=== PATIENT | male | born 1990 | race Caucasian/White ===

== ENCOUNTER 2017-02-04 09:05 | Inpatient (IN) | payer OTHER, SELFPAY ==
[~2017-02-04] VITALS: Ht 172.7 cm; Wt 90.5 kg
[2017-02-04] MEDS ORDERED: LORazepam 2 MG/ML, 1ML ONE (09:41)
[2017-02-04] MEDS ORDERED: PANTOPRAZOLE 40 MG IV ONE (09:41)
[2017-02-04] MEDS ORDERED: ONDANSETRON 2MG/ML, 2ML ONE (09:41)
[2017-02-04] MEDS ORDERED: FAMOTIDINE 20 MG/2 ML ONE (09:42)
[2017-02-04 09:58] LABS: HEMATOCRIT 50.6 % (39.2-51.8); HEMOGLOBIN 17.5 g/dL (13.7-18.0); WHITE BLOOD COUNT 5.3 x10^3/uL (3.4-10)
[2017-02-04] MEDS ORDERED: PANTOPRAZOLE 40 MG IV IVPush ONE (10:00)
[2017-02-04] MEDS ORDERED: LORazepam 2 MG/ML, 1ML IVPush PRN (10:00)
[2017-02-04] MEDS ORDERED: ONDANSETRON 2MG/ML, 2ML IVPush ONE (10:00)
[2017-02-04] MEDS ORDERED: MAGNESIUM SULFATE 1 GM, THIAMINE 100 MG, FOLIC ACID 1 MG, MVI ADULT 10 ML in SODIUM CHL... IV ONE (10:00)
[2017-02-04] MEDS ORDERED: SODIUM CHLORIDE FLUSH 10ML SYR IVF ONE (10:00)
[2017-02-04] MEDS ORDERED: FAMOTIDINE 20 MG/2 ML IVPush ONE (10:00)
[2017-02-04] MEDS ORDERED: SODIUM CHLORIDE 0.9% 1,000ML IVBOLUS ONE (10:00)
[2017-02-04 10:09] LABS: ASPARTATE AMINO TRANSFERASE 171 U/L (15-37); BLOOD UREA NITROGEN 11 mg/dL (7-18)
[2017-02-04] MEDS ORDERED: THIAMINE 100 MG in SODIUM CHLORIDE 0.9% 50 ML IV ONE (11:40)
[2017-02-04] MEDS ORDERED: POTASSIUM CHLORIDE 20 MEQ, MAGNESIUM SULFATE 2 GM, THIAMINE 100 MG, MVI ADULT 10 ML, FO... IV SCH (12:47)
[2017-02-04] MEDS ORDERED: morphine SULFATE 10 MG/ML, 1ML IVPush PRN (13:00)
[2017-02-04] MEDS ORDERED: ONDANSETRON 2MG/ML, 2ML IVPush PRN (13:00)
[2017-02-04] MEDS ORDERED: ONDANSETRON ODT 4 MG PO PRN (13:00)
[2017-02-04] MEDS ORDERED: hydrALAzine 20 MG/ML, 1ML IVPush PRN (13:00)
[2017-02-04] MEDS ORDERED: LABETALOL 5MG/ML, 20ML IVPush PRN (13:00)
[2017-02-04] MEDS ORDERED: CHLORDIAZEPOXIDE 10 MG CAPSULE PO PRN (13:00)
[2017-02-04] MEDS ORDERED: OXYcodone IR 5MG TABLET PO PRN (13:00)
[2017-02-04] MEDS ORDERED: TRAZODONE 50MG TABLET PO PRN (13:00)
[2017-02-04] MEDS ORDERED: LORazepam 2 MG/ML, 1ML IV PRN ×2 (13:00)
[2017-02-04] MEDS: NICOTINE 21 MG/24 HR PATCH.TD24 TD SCH (13:00)
[2017-02-04 13:48] VITALS: BP 131/83
[2017-02-04 13:50] VITALS: BP 131/83
[2017-02-04] MEDS: LORazepam 2 MG/ML, 1ML IV PRN (14:33)
[2017-02-04] MEDS: SUCRALFATE 1 GM TABLET PO SCH ×2 (15:44→20:38)
[2017-02-04 20:01] VITALS: BP 123/78
[2017-02-05 02:25] VITALS: BP 133/79
[2017-02-05 06:04] LABS: HEMATOCRIT 47.5 % (39.2-51.8); HEMOGLOBIN 16.6 g/dL (13.7-18.0); WHITE BLOOD COUNT 7.4 x10^3/uL (3.4-10)
[2017-02-05 06:15] LABS: BLOOD UREA NITROGEN 10 mg/dL (7-18)
[2017-02-05 06:19] LABS: ASPARTATE AMINO TRANSFERASE 125 U/L (15-37)
[2017-02-05] MEDS: SUCRALFATE 1 GM TABLET PO SCH ×4 (07:00→20:42)
[2017-02-05 07:32] VITALS: BP 129/85
[2017-02-05] MEDS: PANTOPRAZOLE 40 MG IV IVPush SCH (07:33)
[2017-02-05] MEDS: NICOTINE 21 MG/24 HR PATCH.TD24 TD SCH (13:00)
[2017-02-05 13:01] VITALS: BP 124/82
[2017-02-05] MEDS: LORazepam 2 MG/ML, 1ML IV PRN (16:18)
[2017-02-05 18:54] VITALS: BP 137/86
[2017-02-06 01:09] VITALS: BP 107/67
[2017-02-06 06:01] LABS: HEMATOCRIT 48.2 % (39.2-51.8); HEMOGLOBIN 16.7 g/dL (13.7-18.0); WHITE BLOOD COUNT 6.2 x10^3/uL (3.4-10)
[2017-02-06 06:13] LABS: BLOOD UREA NITROGEN 13 mg/dL (7-18)
[2017-02-06 06:45] VITALS: BP 116/65
[2017-02-06] MEDS: SUCRALFATE 1 GM TABLET PO SCH ×2 (07:00→11:00)
[2017-02-06] MEDS: PANTOPRAZOLE 40 MG IV IVPush SCH (07:48)
[2017-02-06] MEDS ORDERED: FOLIC ACID 1 MG TABLET PO SCH (09:00)
[2017-02-06] MEDS ORDERED: MULTIVITAMIN 1 TABLET PO SCH (09:00)
[2017-02-06] MEDS ORDERED: MULT1TAB60 PO (10:25)
[2017-02-06] MEDS ORDERED: SUCR1TAB33 PO (10:25)
[2017-02-06] MEDS ORDERED: FOLI-17 PO (10:25)
[2017-02-06] MEDS ORDERED: PANT40TA3 PO (10:25)
[2017-02-06] MEDS ORDERED: THIA100T10 PO (10:25)
== END 2017-02-06 12:15 | disposition home or self-care (01) | DRG 896 ==
LOC: ED 11:19 → EDIP 12:08 → 4WST 13:53
PROVIDERS: ADMIT Internal Medicine; ATTEND Internal Medicine
DX: F10.239 Alcohol dependence with withdrawal, unspecified (principal); K22.6 Gastro-esophageal laceration-hemorrhage syndrome; K70.10 Alcoholic hepatitis without ascites; F12.90 Cannabis use, unspecified, uncomplicated; F17.210 Nicotine dependence, cigarettes, uncomplicated; R74.8 Abnormal levels of other serum enzymes; Z87.19 Personal history of other diseases of the digestive system
CPT/HCPCS: 36415; 76700; 80048; 80053; 80076; 80307; 82140; 82977; 83690; 84439; 84443; 85025; 85610; 85730; 86704; 86706; 86708; 86803; 86850; 86900; 87340; 93005; 96361; 96365; 96366; 96375; J2405; J3411; J3475; J3480; J7042; C9113; G0479; J2060; J7030; S0028

== ENCOUNTER 2017-12-18 22:25 | Inpatient (IN) | payer MEDICAID, OTHER ==
[~2017-12-18] VITALS: Ht 172.7 cm; Wt 93.7 kg
[~2017-12-18 22:25] MED LIST: FOLI-17 PO; MULT1TAB60 PO; PANT40TA3 PO; SUCR1TAB33 PO; THIA100T10 PO
[2017-12-18] MEDS ORDERED: THIAMINE 100MG TABLET ONE (23:17)
[2017-12-18] MEDS ORDERED: ONDANSETRON ODT 4 MG ONE (23:17)
[2017-12-18] MEDS ORDERED: PANTOPRAZOLE 40 MG IV ONE (23:18)
[2017-12-18] MEDS ORDERED: LORazepam 2 MG/ML, 1ML ONE (23:18)
[2017-12-18 23:21] LABS: BASOPHILS # (AUTO) 0.03 x10^3/uL (0-0.1); BASOPHILS % (AUTO) 1 % (0-1); EOSINOPHILS # (AUTO) 0.03 x10^3/uL (0-0.4); EOSINOPHILS % (AUTO) 1 % (1-7); LYMPHOCYTES # (AUTO) 2.03 x10^3/uL (1-3.4); LYMPHOCYTES % (AUTO) 41 % (22-44); MD NO; MEAN CORPUSCULAR HEMOGLOBIN 33.9 pg (27.5-34.5); MEAN CORPUSCULAR HGB CONC 34.6 g/dL (33.2-36.2); MEAN CORPUSCULAR VOLUME 98.2 fL (81-97); MEAN PLATELET VOLUME 6.8 fL (7.4-10.4); MONOCYTES # (AUTO) 0.43 x10^3/uL (0.2-0.8); MONOCYTES % (AUTO) 9 % (2-9); NEUTROPHILS # (AUTO) 2.46 x10^3/uL (1.8-6.8); NEUTROPHILS % (AUTO) 49 % (42-75); PLATELET COUNT 337 x10^3/uL (130-400); RED BLOOD COUNT 5.31 x10^6/uL (4.38-5.82); RED CELL DISTRIBUTION WIDTH 13.3 % (9.4-14.8)
[2017-12-18] MEDS: LORazepam 2 MG/ML, 1ML IVPush PRN (23:26)
[2017-12-18 23:27] LABS: INTERNATIONAL NORMALIZED RATIO 0.98 (0.93-1.1); PROTHROMBIN TIME 10.2 Seconds (9.6-11.5)
[2017-12-18 23:30] LABS: ALANINE AMINOTRANSFERASE 162 U/L (12-78); ALBUMIN 4.6 g/dL (3.4-5.0); ANION GAP 14 mmol/L (5-15); CALCIUM 9.2 mg/dL (8.5-10.1); CHLORIDE 103 mmol/L (98-107); CREATININE 0.98 mg/dL (0.7-1.3)
[2017-12-18] MEDS ORDERED: THIAMINE 100MG TABLET PO ONE (23:30)
[2017-12-18] MEDS ORDERED: SODIUM CHLORIDE 0.9% 1,000ML IVBOLUS ONE (23:30)
[2017-12-18] MEDS ORDERED: ONDANSETRON ODT 4 MG PO ONE (23:30)
[2017-12-18] MEDS ORDERED: PANTOPRAZOLE 40 MG IV IVPush ONE (23:30)
[2017-12-18 23:32] LABS: ALKALINE PHOSPHATASE 88 U/L (45-117); BILIRUBIN,TOTAL 1.2 mg/dL (0.2-1.0); TOTAL PROTEIN 8.5 g/dL (6.4-8.2)
[2017-12-19] MEDS ORDERED: LORazepam 2 MG/ML, 1ML ONE ×3 (00:40→02:06)
[2017-12-19] MEDS ORDERED: ACETAMINOPHEN 325 MG TABLET ONE (00:40)
[2017-12-19] MEDS: LORazepam 2 MG/ML, 1ML IVPush PRN ×2 (00:48→01:43)
[2017-12-19] MEDS ORDERED: ACETAMINOPHEN 325 MG TABLET PO ONE (01:00)
[2017-12-19] MEDS ORDERED: LORazepam 2 MG/ML, 1ML IVPush ONE (02:00)
[2017-12-19] MEDS ORDERED: SODIUM CHLORIDE 0.9% 1,000ML IVBOLUS ONE (02:00)
[2017-12-19] MEDS ORDERED: LORazepam 2 MG/ML, 1ML IV PRN ×3 (03:30)
[2017-12-19] MEDS ORDERED: POLYETHYLENE GLYCOL 17 GM PACKET PO PRN (03:30)
[2017-12-19] MEDS ORDERED: LORazepam 1MG TABLET PO PRN ×4 (03:30)
[2017-12-19] MEDS ORDERED: PROMETHAZINE 25 MG/ML, 1ML IM PRN (03:30)
[2017-12-19] MEDS ORDERED: ONDANSETRON 2MG/ML, 2ML IVPush PRN (03:30)
[2017-12-19] MEDS ORDERED: LABETALOL 5MG/ML, 20ML IVPush PRN (03:30)
[2017-12-19] MEDS ORDERED: BACLOFEN 10 MG TABLET PO PRN (03:30)
[2017-12-19] MEDS ORDERED: ONDANSETRON ODT 4 MG PO PRN (03:30)
[2017-12-19] MEDS ORDERED: GABAPENTIN 300 MG CAPSULE PO PRN (03:30)
[2017-12-19] MEDS ORDERED: DOCUSATE 100 MG CAPSULE PO PRN (03:30)
[2017-12-19] MEDS ORDERED: hydrALAzine 20 MG/ML, 1ML IVPush PRN (03:30)
[2017-12-19] MEDS ORDERED: BISACODYL 10 MG SUPP PR PRN (03:30)
[2017-12-19 03:56] LABS: FREE T4 (FREE THYROXINE) 0.84 ng/dL (0.76-1.46); THYROID STIMULATING HORMONE 1.95 mIU/L (0.358-3.740)
[2017-12-19 03:59] LABS: MICROSCOPIC INDICATED
[2017-12-19] MEDS ORDERED: NICOTINE 7 MG/24 HR PATCH.TD24 ONE (04:26)
[2017-12-19 04:30] LABS: CULTURE INDICATED? NO
[2017-12-19] MEDS: POTASSIUM CHLORIDE 20 MEQ, MAGNESIUM SULFATE 2 GM, THIAMINE 100 MG, MVI ADULT 10 ML, FO... IV SCH (04:40)
[2017-12-19] MEDS: NICOTINE 7 MG/24 HR PATCH.TD24 TD SCH ×2 (04:40→15:13)
[2017-12-19 08:28] VITALS: BP 139/89
[2017-12-19 09:26] VITALS: BP 131/89
[2017-12-19] MEDS: LORazepam 2 MG/ML, 1ML IV PRN ×4 (09:51→16:40)
[2017-12-19 13:45] VITALS: BP 132/77
[2017-12-19] MEDS: CHLORDIAZEPOXIDE 10 MG CAPSULE PO SCH ×3 (15:00→21:17)
[2017-12-19 18:56] VITALS: BP 137/85
[2017-12-19] MEDS: PANTOPRAZOLE 40 MG IV IVPush SCH (23:19)
[2017-12-20 01:03] VITALS: BP 134/85
[2017-12-20] MEDS: POTASSIUM CHLORIDE 20 MEQ, MAGNESIUM SULFATE 2 GM, THIAMINE 100 MG, MVI ADULT 10 ML, FO... IV SCH (03:59)
[2017-12-20] MEDS: LORazepam 2 MG/ML, 1ML IV PRN ×2 (04:06→12:16)
[2017-12-20 05:49] LABS: BASOPHILS # (AUTO) 0.02 x10^3/uL (0-0.1); BASOPHILS % (AUTO) 0 % (0-1); EOSINOPHILS # (AUTO) 0.11 x10^3/uL (0-0.4); EOSINOPHILS % (AUTO) 2 % (1-7); LYMPHOCYTES # (AUTO) 1.49 x10^3/uL (1-3.4); LYMPHOCYTES % (AUTO) 26 % (22-44); MD NO; MEAN CORPUSCULAR HEMOGLOBIN 34.5 pg (27.5-34.5); MEAN CORPUSCULAR VOLUME 98.5 fL (81-97); MEAN PLATELET VOLUME 7.1 fL (7.4-10.4); MONOCYTES # (AUTO) 0.48 x10^3/uL (0.2-0.8); MONOCYTES % (AUTO) 8 % (2-9); NEUTROPHILS # (AUTO) 3.64 x10^3/uL (1.8-6.8); NEUTROPHILS % (AUTO) 63 % (42-75); PLATELET COUNT 212 x10^3/uL (130-400); RED BLOOD COUNT 4.13 x10^6/uL (4.38-5.82); RED CELL DISTRIBUTION WIDTH 12.9 % (9.4-14.8)
[2017-12-20 05:53] LABS: CHLORIDE 107 mmol/L (98-107)
[2017-12-20 06:04] LABS: ALANINE AMINOTRANSFERASE 99 U/L (12-78); ALBUMIN 3.4 g/dL (3.4-5.0); ALKALINE PHOSPHATASE 63 U/L (45-117); ANION GAP 8 mmol/L (5-15); BILIRUBIN,TOTAL 2.1 mg/dL (0.2-1.0); CALCIUM 8.5 mg/dL (8.5-10.1); CHOL/HDL RATIO 1.9; CHOLESTEROL, TOTAL 208 mg/dL (140-239); HDL CHOL % 52 % (26-37); HDL CHOLESTEROL (DIRECT) 108 mg/dL (40-60); LDL CHOLESTEROL,CALCULATED 90 mg/dL (54-169); LDL/HDL RATIO 0.8 (0.5-3.0); TOTAL PROTEIN 6.1 g/dL (6.4-8.2); TRIGLYCERIDES 49 mg/dL (50-200); VLDL CHOLESTEROL 10 mg/dL (0-25)
[2017-12-20] MEDS: CHLORDIAZEPOXIDE 10 MG CAPSULE PO SCH ×3 (08:16→19:44)
[2017-12-20 08:35] VITALS: BP 140/90
[2017-12-20 14:10] VITALS: BP 126/88
[2017-12-20] MEDS: NICOTINE 7 MG/24 HR PATCH.TD24 TD SCH (15:33)
[2017-12-20 19:39] VITALS: BP 113/71
[2017-12-20] MEDS: LORazepam 0.5MG TABLET PO PRN ×2 (19:44→23:50)
[2017-12-20] MEDS: PANTOPRAZOLE 40 MG IV IVPush SCH (23:50)
[2017-12-21 02:00] VITALS: BP 133/92
[2017-12-21] MEDS: POTASSIUM CHLORIDE 20 MEQ, MAGNESIUM SULFATE 2 GM, THIAMINE 100 MG, MVI ADULT 10 ML, FO... IV SCH (03:36)
[2017-12-21 07:50] VITALS: BP 135/95
[2017-12-21] MEDS: CHLORDIAZEPOXIDE 10 MG CAPSULE PO SCH ×3 (09:23→22:49)
[2017-12-21] MEDS: MULTIVITAMIN 1 TABLET PO SCH (09:30)
[2017-12-21] MEDS ORDERED: ERGOCALCIFEROL 50,000 UNIT CAPSULE PO SCH (09:30)
[2017-12-21 14:00] VITALS: BP 131/74
[2017-12-21 19:30] VITALS: BP 126/82
[2017-12-21] MEDS: PANTOPRAZOLE 40 MG IV IVPush SCH (22:48)
[2017-12-21] MEDS: NICOTINE 7 MG/24 HR PATCH.TD24 TD SCH (22:49)
[2017-12-22 03:00] VITALS: BP 125/82
[2017-12-22 05:34] LABS: ALBUMIN 3.6 g/dL (3.4-5.0); ANION GAP 9 mmol/L (5-15); CHLORIDE 109 mmol/L (98-107)
[2017-12-22 05:39] LABS: ALANINE AMINOTRANSFERASE 175 U/L (12-78); ALKALINE PHOSPHATASE 78 U/L (45-117); CREATININE 0.87 mg/dL (0.7-1.3)
[2017-12-22 07:01] VITALS: BP 125/82
[2017-12-22] MEDS: CHLORDIAZEPOXIDE 10 MG CAPSULE PO SCH (08:36)
[2017-12-22] MEDS: MULTIVITAMIN 1 TABLET PO SCH (08:36)
[2017-12-22 13:13] VITALS: BP 121/76
[2017-12-22 19:10] VITALS: BP 117/74
[2017-12-22] MEDS: PANTOPRAZOLE 40 MG IV IVPush SCH (22:56)
[2017-12-23 02:15] VITALS: BP 121/72
[2017-12-23] MEDS: NICOTINE 7 MG/24 HR PATCH.TD24 TD SCH ×2 (03:30→16:03)
[2017-12-23 06:56] VITALS: BP 115/75
[2017-12-23] MEDS: MULTIVITAMIN 1 TABLET PO SCH (07:51)
[2017-12-23 10:30] LABS: ALANINE AMINOTRANSFERASE 267 U/L (12-78); ALBUMIN 4.2 g/dL (3.4-5.0); ANION GAP 8 mmol/L (5-15); CALCIUM 9.4 mg/dL (8.5-10.1); CHLORIDE 107 mmol/L (98-107); CREATININE 0.99 mg/dL (0.7-1.3)
[2017-12-23 10:32] LABS: ALKALINE PHOSPHATASE 83 U/L (45-117); BILIRUBIN,TOTAL 0.7 mg/dL (0.2-1.0); TOTAL PROTEIN 7.9 g/dL (6.4-8.2)
[2017-12-23 13:43] VITALS: BP 128/77
[2017-12-23 20:07] VITALS: BP 122/71
[2017-12-23] MEDS: LURASIDONE 20 MG TABLET PO SCH (21:42)
[2017-12-23] MEDS: PANTOPRAZOLE 40 MG IV IVPush SCH (21:46)
[2017-12-24 02:30] VITALS: BP 127/80
[2017-12-24 05:35] LABS: ALANINE AMINOTRANSFERASE 263 U/L (12-78); ALBUMIN 3.9 g/dL (3.4-5.0); ANION GAP 9 mmol/L (5-15); CALCIUM 9.1 mg/dL (8.5-10.1); CHLORIDE 108 mmol/L (98-107); CREATININE 1.02 mg/dL (0.7-1.3)
[2017-12-24 05:37] LABS: ALKALINE PHOSPHATASE 81 U/L (45-117); BILIRUBIN,TOTAL 0.5 mg/dL (0.2-1.0); TOTAL PROTEIN 7.2 g/dL (6.4-8.2)
[2017-12-24] MEDS: MULTIVITAMIN 1 TABLET PO SCH (07:48)
[2017-12-24 08:14] VITALS: BP 115/74
[2017-12-24] MEDS ORDERED: MULT1TAB60 PO (09:07)
[2017-12-24] MEDS ORDERED: LURA20TA PO (09:07)
[2017-12-24] MEDS ORDERED: ERGO500017 PO (09:07)
[2017-12-24 12:27] VITALS: BP 124/81
[2017-12-24] MEDS: LURASIDONE 20 MG TABLET PO SCH (12:34)
== END 2017-12-24 14:20 | disposition home or self-care (01) | DRG 433 ==
LOC: ED 12-19 00:55 → EDIP 12-19 03:15 → 4NOR 12-19 05:55 → DCLOUNGE 12-24 14:07
PROVIDERS: ADMIT Internal Medicine; ATTEND Internal Medicine
DX: K70.9 Alcoholic liver disease, unspecified (principal); F31.81 Bipolar II disorder; R00.0 Tachycardia, unspecified; K29.70 Gastritis, unspecified, without bleeding; Z81.1 Family history of alcohol abuse and dependence; F10.129 Alcohol abuse with intoxication, unspecified; E55.9 Vitamin D deficiency, unspecified; F15.10 Other stimulant abuse, uncomplicated; F17.210 Nicotine dependence, cigarettes, uncomplicated; F41.9 Anxiety disorder, unspecified; K76.0 Fatty (change of) liver, not elsewhere classified; Z91.5 Personal history of self-harm
CPT/HCPCS: 36415; 99291; J7042; 71045; 76700; 80053; 80061; 80307; 81001; 82306; 82607; 83036; 83690; 83735; 84100; 84439; 84443; 85025; 85610; 86850; 86900; 93005; 96374; 96375; 96376; G0378; J3411; J3475; J3480; Q0162; C9113; J2060; J7030